=== PATIENT | female | born 1980 ===

== ENCOUNTER 2021-05-28 21:15 | Emergency (ER) | payer SELFPAY | END 2021-05-28 21:20 | disposition left against medical advice (07) | LOC: ED 21:15 | DX: Z00.8 Encounter for other general examination (principal); Z53.21 Procedure and treatment not carried out due to patient leaving prior to being seen by health care provider ==

== ENCOUNTER 2021-11-17 23:11 | Emergency (ER) | payer MEDICAID ==
[2021-11-18 00:43] VITALS: BP 144/91
[2021-11-18] MEDS ORDERED: AMOXICILLIN/K CLAV 875/125MG TAB PO ONE (04:42)
[2021-11-18] MEDS ORDERED: IBUPROFEN 800 MG TAB PO ONE (04:42)
--- NOTE | 2021-11-18 05:39 | Emergency Department Report ---
ED General Adult HPI - General Chief complaint: Skin/Abscess/Foreign Body Stated complaint: UPPER LIP SWELLING Time Seen by Provider: 11/18/21 04:30 Source: patient Mode of arrival: Ambulatory Limitations: No Limitations - History of Present Illness Initial comments: Patient 41-year-old female who presents for pain and swelling upper lip status post removal and lip pain. Patient states she has had leg pain for the past 5 years somehow got infected. No fevers no chills no nausea no vomiting no dizziness or headache. Symptoms include left upper lip swelling with some mild pussy drainage manual expression. There is no open wound noted at this time. Patient is tolerating p.o. intake. Patient denies fevers or chills. Ring was removed intact via patient. Last tetanus shot 3 years ago. Severity scale (0 -10): 6 - Related Data Previous Rx's Medication Instructions Recorded Last Taken Type Amoxicillin/Potassium Clav 1 each PO BID #14 11/18/21 Unknown Rx [Augmentin 875-125 Tablet] Chlorhexidine Mouthwash [Peridex] 15 ml MM BID 10 Days #1 bottle 11/18/21 Unkno wn Rx Ibuprofen [Motrin 800 MG tab] 800 mg PO Q8HR PRN #30 tablet 11/18/21 Unknown Rx Allergies Allergy/AdvReac Type Severity Reaction Status Date / Time No Known Allergies Allergy Unverified 11/18/21 00:38 ED Review of Systems ROS: Stated complaint: UPPER LIP SWELLING Other details as noted in HPI Constitutional: no symptoms reported Eyes: denies: eye pain, eye discharge, vision change ENT: denies: ear pain, throat pain Respiratory: denies: cough, shortness of breath, wheezing Cardiovascular: denies: chest pain, palpitations Endocrine: no symptoms reported Gastrointestinal: denies: abdominal pain, nausea, diarrhea Genitourinary: denies: urgency, dysuria, discharge Musculoskeletal: denies: back pain, joint swelling, arthralgia Skin: other (Abscess upper lip) Neurological: denies: headache, weakness, paresthesias Psychiatric: denies: anxiety, depression Hematological/Lymphatic: denies: easy bleeding, easy bruising ED Past Medical Hx - Past Medical History Previous Medical History?: Yes Additional medical history: Hypothyroidism - Medications Home Medications: Home Medications Medication Instructions Recorded Confirmed Last Taken Type Amoxicillin/Potassium Clav 1 each PO BID #14 11/18/21 Unknown Rx [Augmentin 875-125 Tablet] Chlorhexidine Mouthwash [Peridex] 15 ml MM BID 10 Days #1 bottle 11/18/21 Unknown Rx Ibuprofen [Motrin 800 MG tab] 800 mg PO Q8HR PRN #30 tablet 11/18/21 Unknown Rx ED Physical Exam - General Limitations: No Limitations General appearance: alert, in no apparent distress - Head Head exam: Present: normocephalic, normal inspection - Eye Eye exam: Present: normal appearance, EOMI Pupils: Present: normal accommodation - ENT ENT exam: Present: mucous membranes moist, TM's normal bilaterally, normal external ear exam - Neck Neck exam: Present: normal inspection, full ROM. Absent: tenderness, lymphadenopathy, thyromegaly - Respiratory Respiratory exam: Present: normal lung sounds bilaterally. Absent: respiratory distress, wheezes, stridor - Cardiovascular Cardiovascular Exam: Absent: rubs - GI/Abdominal GI/Abdominal exam: Present: soft, normal bowel sounds. Absent: distended, tenderness - Rectal Rectal exam: Present: deferred - Extremities Exam Extremities exam: Present: normal inspection, full ROM. Absent: tenderness - Back Exam Back exam: Present: normal inspection, full ROM. Absent: tenderness, CVA tenderness (R), CVA tenderness (L) - Neurological Exam Neurological exam: Present: alert, oriented X3, CN II-XII intact, normal gait - Expanded Neurological Exam Expanded Best Eye Response ([place]): (4) open spontaneously Best Motor Response (Félix): (6) obeys commands Best Verbal Response (Félix): (5) oriented Félix Total: 15 - Psychiatric Psychiatric exam: Present: normal affect, normal mood - Skin Skin exam: Present: warm, dry, intact, erythema, urticaria (Upper lip), other (Small abscess upper lip manually expressed mild purulent output noted.) ED Course Vital Signs 11/18/21 11/18/21 00:41 05:08 Temperature 98.2 F Pulse Rate 65 Respiratory 20 14 Rate Blood Pressure 144/91 [Right] O2 Sat by Pulse 98 Oximetry ED Medical Decision Making - Medical Decision Making Upper lip swelling erythema, no open wound. No drainage noted at this time. Plan treat for lip cellulitis versus abscess, follow-up primary care doctor in 2 to 3 days. Return to emergency department should symptoms worsen. Patient verbalized agreement understanding with discharge plan. Patient DC'd home in stable condition at this time. Critical care attestation.: If time is entered above; I have spent that time in minutes in the direct care of this critically ill patient, excluding procedure time. ED Disposition Clinical Impression: Lip abscess Disposition: 01 HOME / SELF CARE / HOMELESS Is pt being admited?: No Does the pt Need Aspirin: No Condition: Stable Instructions: Skin Abscess Additional Instructions: Take medications as prescribed, follow-up with your doctor in 2 to 3 days. Wound care as directed. Prescriptions: Amoxicillin/Potassium Clav [Augmentin 875-125 Tablet] 1 each PO BID #14 Ibuprofen [Motrin 800 MG tab] 800 mg PO Q8HR PRN #30 tablet PRN Reason: pain fever Chlorhexidine Mouthwash [Peridex] 15 ml MM BID 10 Days #1 bottle Referrals: [facility] [Provider Group] - 3-5 Days Forms: Work/School Release Form(ED) Time of Disposition: 05:46
== END 2021-11-18 19:33 | disposition home or self-care (01) ==
LOC: ED 23:11
DX: K13.0 Diseases of lips (principal); E03.9 Hypothyroidism, unspecified
CPT/HCPCS: 99282